=== PATIENT | female | born 1960 | race African-American/Black ===

== ENCOUNTER 2018-08-28 05:39 | Observation (INO) ==
[2018-08-09 11:17] LABS: Basophils % 0.1 % (0.0-0.8); Eosinophils % 0.4 % (0.00-10.9); Hematocrit 32.4 VOL% (35.7-47.0); Hemoglobin 10.8 GM/DL (12.0-16.0); Immature Granulocytes % 0.4 %; Immature Granulocytes Absolute 0.03 #; Lymphocytes # 1.3 10*3/uL (1.4-4.0); Lymphocytes % 15.7 % (21.3-54.2); Mean Corpuscular HGB Conc 33.3 GM/DL (32-36); Mean Corpuscular Volume 109.5 FL (87-102); Mean Platelet Volume 11.1 FL (9.6-12.0); Monocytes % 4.4 % (1.7-12.7); NRBC # 0.02 10*3/uL; Platelet Count 265 T/CUMM (130-400); Red Blood Count 2.96 MC/CUMM (3.8-5.5); Red Cell Distribution Width 16.1 % (9.3-17.3)
[2018-08-09 11:39] LABS: Calcium 9.1 MG/DL (8.5-10.1); Osmolality,Calculated 278.4 MOS/KG (273-304)
[2018-08-09 11:48] LABS: Apearance,Urine CLEAR (Clear); Bilirubin,Urine Small mg/dL (Negative); Blood, Urine Small mg/dL (Negative); Glucose,Urine (UA) Negative (Negative); Ketones,Urine 5 mg/dL (Negative); Mucus,Urine Many /LPF (Occasional); Nitrite,Urine Negative (Negative); Protein,Urine 30 MG/DL; RBC,Urine 3 /HPF (0-4); Squamous Epithelial Cell,Urine Occasional /HPF (0-10); Urine Color Amber (Yellow); Urine Specific Gravity 1.027 (1.001-1.035); WBC,Urine 1 /HPF (0-6)
[2018-08-28] MEDS ORDERED: ceFAZolin 2,000 MG in PREMIX 1 EACH IV ONE (06:30)
[2018-08-28] MEDS ORDERED: ACETAMINOPHEN 500 MG TABLET PO ONE (06:57)
[2018-08-28] MEDS ORDERED: GABAPENTIN 400 MG CAPSULE PO ONE ×2 (06:57→12:25)
[2018-08-28] MEDS ORDERED: FAMOTIDINE 20 MG TABLET PO ONE (06:57)
[2018-08-28] MEDS ORDERED: GABAPENTIN 400 MG CAPSULE ONE ×2 (06:58→12:32)
[2018-08-28] MEDS ORDERED: LACTATED RINGERS 1,000 ML IV SCH (07:00)
[2018-08-28] MEDS ORDERED: ROPIVACAINE 0.5% 30 ML VIAL ONE (07:57)
[2018-08-28] MEDS ORDERED: LIDOCAINE 1%/EPI INJ 20 ML VIAL ONE (08:10)
[2018-08-28] MEDS ORDERED: ALBUTEROL 2.5 MG/3 ML NEB RESP TX ONE ×2 (08:16→11:11)
[2018-08-28] MEDS ORDERED: SUGAMMADEX 200 MG/2 ML VIAL IV ONE (10:22)
[2018-08-28] MEDS ORDERED: hydrALAZINE 20 MG/1 ML VIAL ONE (10:36)
[2018-08-28] MEDS ORDERED: PROPOFOL 200 MG/20 ML VIAL IV ONE (10:48)
[2018-08-28] MEDS ORDERED: MIDAZOLAM 2 MG/2 ML VIAL ONE ×2 (10:49)
[2018-08-28] MEDS ORDERED: PHENYLEPHRINE 0.5% NASAL SPRAY 15 ML BOTTLE BOTH NARES ONE (10:49)
[2018-08-28] MEDS ORDERED: DEXAMETHASONE 4 MG/1 ML VIAL ONE (10:49)
[2018-08-28] MEDS ORDERED: SEVOFLURANE 1 UNIT/15 MINUTE INH ONE (10:49)
[2018-08-28] MEDS ORDERED: fentaNYL 100 MCG/2 ML VIAL ONE (10:49)
[2018-08-28] MEDS ORDERED: KETAMINE 500 MG/10 ML VIAL ONE (10:49)
[2018-08-28] MEDS ORDERED: NEOSTIGMINE 10 MG/10 ML VIAL ONE (10:50)
[2018-08-28] MEDS ORDERED: ROCURONIUM 100 MG/10 ML VIAL IV ONE (10:50)
[2018-08-28] MEDS ORDERED: LACTATED RINGERS 1,000 ML IV ONE (10:50)
[2018-08-28] MEDS ORDERED: GLYCOPYRROLATE 0.4 MG/2 ML VIAL ONE (10:50)
[2018-08-28] MEDS ORDERED: ONDANSETRON 4 MG/2 ML VIAL ONE (10:50)
[2018-08-28] MEDS ORDERED: PHENYLEPHRINE 1 MG/10 ML SYRINGE IV ONE (10:50)
[2018-08-28] MEDS ORDERED: KETOROLAC 30 MG/1 ML VIAL ONE (10:50)
[2018-08-28] MEDS ORDERED: hydrALAZINE 20 MG/1 ML VIAL IV ONE (10:53)
[2018-08-28] MEDS ORDERED: ceFAZolin 1,000 MG VIAL ONE (12:33)
[2018-08-28] MEDS ORDERED: ceFAZolin 1,000 MG in SYRINGE 1 EACH IV ONE (13:00)
[2018-08-28] MEDS ORDERED: DOCUSATE SODIUM 100 MG CAPSULE PO PRN (15:33)
[2018-08-28] MEDS ORDERED: NICOTINE 21 MG/24 HR PATCH TRANSDERM PRN (15:33)
[2018-08-28] MEDS ORDERED: ONDANSETRON 4 MG/2 ML VIAL IV PRN (15:33)
[2018-08-28] MEDS ORDERED: MORPHINE 4 MG/1 ML VIAL IV PRN (17:43)
[2018-08-28 17:46] LABS: Basophils % 0.1 % (0.0-0.8); Hematocrit 34.7 VOL% (35.7-47.0); Hemoglobin 11.2 GM/DL (12.0-16.0); Immature Granulocytes % 0.5 %; Immature Granulocytes Absolute 0.07 #; Lymphocytes # 0.4 10*3/uL (1.4-4.0); Lymphocytes % 3.3 % (21.3-54.2); Mean Corpuscular HGB Conc 32.3 GM/DL (32-36); Mean Corpuscular Volume 113.4 FL (87-102); Mean Platelet Volume 11.2 FL (9.6-12.0); Monocytes % 1.2 % (1.7-12.7); Neutrophils % 94.9 % (38.7-73.9); Platelet Count 250 T/CUMM (130-400); Red Blood Count 3.06 MC/CUMM (3.8-5.5); Red Cell Distribution Width 15.3 % (9.3-17.3); White Blood Count 12.9 T/CUMM (4-12)
[2018-08-28 18:04] LABS: Albumin 3.5 G/DL (3.4-5.0); Bilirubin,Total 0.6 MG/DL (0.2-1.0); Calcium 8.8 MG/DL (8.5-10.1); Osmolality,Calculated 274.8 MOS/KG (273-304); Total Protein 7.4 G/DL (6.4-8.3)
[2018-08-28 18:12] LABS: Risk Ratio 4.8; Thyroid Stimulating Hormone 0.856 uIU/ml (0.358-3.74); VLDL CHOLESTEROL 19.2 MG/DL
[2018-08-28 18:49] LABS: Lymphocytes 2 % (20-55); Segmented Neutrophils 97 % (50-85)
[2018-08-28 18:52] LABS: Polychromasia 1+
[2018-08-28 18:54] LABS: Anisocytosis 1+; Stomatocytes 1+
[2018-08-28 18:55] LABS: Hypochromasia 1+; Macrocytosis 1+; Poikilocytosis Slight
[2018-08-28 18:57] LABS: Platelet Estimate Normal; Total Cells Counted 100
[2018-08-28] MEDS: PANTOPRAZOLE 40 MG TABLET PO SCH (19:09)
[2018-08-29] MEDS: MORPHINE 4 MG/1 ML VIAL IV PRN ×3 (02:02→23:36)
[2018-08-29] MEDS: LISINOPRIL 20 MG TABLET PO SCH (08:48)
[2018-08-29] MEDS: SIMVASTATIN 10 MG TABLET PO SCH (08:49)
[2018-08-29] MEDS: PANTOPRAZOLE 40 MG TABLET PO SCH (08:49)
[2018-08-29] MEDS: POTASSIUM CITRATE 10 MEQ TABLET PO SCH (08:49)
[2018-08-29] MEDS: METOPROLOL TARTRATE 50 MG TABLET PO SCH (08:49)
[2018-08-29] MEDS ORDERED: FUROSEMIDE 20 MG TABLET PO SCH (09:00)
[2018-08-29] MEDS: ALBUTEROL/IPRATROPIUM 3 ML NEB RESP TX SCH ×4 (11:14→23:57)
[2018-08-29] MEDS ORDERED: FUROSEMIDE 20 MG/2 ML VIAL IV ONE (12:32)
[2018-08-29] MEDS: hydrALAZINE 20 MG/1 ML VIAL IV PRN ×2 (12:36→23:45)
[2018-08-29] MEDS ORDERED: FUROSEMIDE 20 MG/2 ML VIAL IV SCH (16:00)
[2018-08-30] MEDS: ALBUTEROL/IPRATROPIUM 3 ML NEB RESP TX SCH ×6 (04:13→23:56)
[2018-08-30] MEDS: SIMVASTATIN 10 MG TABLET PO SCH (08:11)
[2018-08-30] MEDS: METOPROLOL TARTRATE 50 MG TABLET PO SCH ×2 (08:11→20:43)
[2018-08-30] MEDS: LISINOPRIL 20 MG TABLET PO SCH (08:11)
[2018-08-30] MEDS: PANTOPRAZOLE 40 MG TABLET PO SCH (08:11)
[2018-08-30] MEDS: POTASSIUM CITRATE 10 MEQ TABLET PO SCH (08:11)
[2018-08-30] MEDS: hydrALAZINE 20 MG/1 ML VIAL IV PRN ×3 (08:12→20:49)
[2018-08-30] MEDS ORDERED: MAGNESIUM HYDROXIDE SUSP 30 ML UDCUP PO ONE (09:30)
[2018-08-30] MEDS: FUROSEMIDE 20 MG TABLET PO SCH (10:00)
[2018-08-30] MEDS ORDERED: amLODIPine 10 MG TABLET PO SCH (10:05)
[2018-08-30] MEDS: amLODIPine 10 MG TABLET PO SCH (10:30)
[2018-08-30] MEDS ORDERED: SODIUM PHOSPHATE ENEMA 133 ML BOTTLE RECTAL ONE (11:38)
[2018-08-30] MEDS ORDERED: LORazepam 2 MG/1 ML VIAL IV ONE (12:57)
[2018-08-31] MEDS: ALBUTEROL/IPRATROPIUM 3 ML NEB RESP TX SCH ×4 (03:34→14:10)
[2018-08-31] MEDS: LISINOPRIL 20 MG TABLET PO SCH (08:58)
[2018-08-31] MEDS: FUROSEMIDE 20 MG TABLET PO SCH (08:59)
[2018-08-31] MEDS: METOPROLOL TARTRATE 50 MG TABLET PO SCH (08:59)
[2018-08-31] MEDS: amLODIPine 10 MG TABLET PO SCH (08:59)
[2018-08-31] MEDS: PANTOPRAZOLE 40 MG TABLET PO SCH (09:00)
[2018-08-31] MEDS ORDERED: amLODIPine 10 MG TABLET PO SCH (09:00)
[2018-08-31] MEDS: POTASSIUM CITRATE 10 MEQ TABLET PO SCH (09:00)
[2018-08-31] MEDS: SIMVASTATIN 10 MG TABLET PO SCH (09:01)
[2018-08-31 16:30] VITALS: BP 157/103
== END 2018-08-31 17:59 | disposition home or self-care (01) ==
LOC: N.OR 05:39 → N.SDSINP 05:39 → N.3E 16:53
PROVIDERS: ADMIT Orthopaedic Surgery; ATTEND Orthopaedic Surgery